=== PATIENT | female | born 2000 | race Caucasian/White ===

== ENCOUNTER 2020-01-17 16:03 | Emergency (ER) | payer MEDICAID ==
[~2020-01-17] VITALS: Ht 170.2 cm; Wt 76.5 kg
--- NOTE | 2020-01-17 16:39 | NUR ---
PT STATES STATES BILAT LOWER RIB PAIN X2 DAYS, STATES WORSE WITH MOVEMENT OR DEEP BREATHING. PT DENIES OTHER COMPLAINT. AWAITING ERMD ASSESSMENT. PT ON MONITORS. WILL FOLLOW ORDERS.
--- NOTE | 2020-01-17 16:57 | NUR ---
REPORT GIVEN TO MING GANDARA.
[2020-01-17 17:07] LABS: BASOPHILS # (AUTO) 0.04 x10^3/uL (0-0.3); BASOPHILS % (AUTO) 0 % (0-1); EOSINOPHILS # (AUTO) 0.72 x10^3/uL (0-0.8); EOSINOPHILS % (AUTO) 7 % (1-7); LYMPHOCYTES # (AUTO) 1.87 x10^3/uL (1-6.1); LYMPHOCYTES % (AUTO) 17 % (22-44); MD NO; MEAN CORPUSCULAR HEMOGLOBIN 32.7 pg (27.0-34.8); MEAN CORPUSCULAR HGB CONC 33.8 g/dL (32.4-35.8); MEAN CORPUSCULAR VOLUME 96.8 fL (80-100); MONOCYTES % (AUTO) 4 % (2-9); NEUTROPHILS # (AUTO) 8.08 x10^3/uL (1.8-8.0); NEUTROPHILS % (AUTO) 73 % (42-75); PLATELET COUNT 276 x10^3/uL (130-400); RED CELL DISTRIBUTION WIDTH 12.6 % (9.6-15.2)
--- NOTE | 2020-01-17 17:12 | NUR ---
PT GIVEN UA CUP AND INSTRUCTIONS ON USE.
[2020-01-17 17:18] LABS: ALANINE AMINOTRANSFERASE 15 U/L (12-78); ALBUMIN 3.5 g/dL (3.4-5.0); ANION GAP 5 mmol/L (5-15); CALCIUM 8.6 mg/dL (8.5-10.1); CHLORIDE 108 mmol/L (98-107); CREATININE 0.98 mg/dL (0.55-1.02)
[2020-01-17 17:22] LABS: ALKALINE PHOSPHATASE 58 U/L (45-117); BILIRUBIN,TOTAL 0.5 mg/dL (0.2-1.0); TOTAL PROTEIN 7.2 g/dL (6.4-8.2)
--- NOTE | 2020-01-17 17:50 | NUR ---
pt ambulates well to bathroom for UA specimen. NAD noted at this time. UA sent to lab. Awaiting results.
[2020-01-17 18:39] LABS: MICROSCOPIC NOT IND
[2020-01-17] MEDS ORDERED: MAALOX/HYOSCYAMINE/LIDOCAINE 45 ML BTL PO ONE (19:00)
[2020-01-17] MEDS ORDERED: MAALOX/HYOSCYAMINE/LIDOCAINE 45 ML BTL ONE (19:01)
--- NOTE | 2020-01-17 19:01 | NUR ---
REPORT TO NICHOL DICKERSON.
--- NOTE | 2020-01-17 19:01 | NUR ---
REPORT FROM MING GANDARA.
[2020-01-17 19:04] VITALS: BP 104/64
== END 2020-01-17 19:42 | disposition home or self-care (01) ==
LOC: ED 19:10
DX: K21.0 Gastro-esophageal reflux disease with esophagitis (principal); R10.13 Epigastric pain; R10.11 Right upper quadrant pain
CPT/HCPCS: 36415; 71045; 76700; 80053; 81003; 83690; 84703; 85025; 99285